=== PATIENT | male | born 1975 | race Caucasian/White ===

== ENCOUNTER 2017-09-12 08:29 | Day surgery (SDC) | payer OTHER ==
[~2017-09-12 08:29] MED LIST: SOD CHLORIDE 0.9% 1,000 ML IV
[2017-09-12] MEDS ORDERED: METOCLOPRAMIDE 10 MG INJ (10:56)
[2017-09-12] MEDS ORDERED: FENTAnyl 50 MCG/ML VIAL (10:56)
[2017-09-12] MEDS ORDERED: PROPOFOL 20 ML (10:56)
[2017-09-12] MEDS ORDERED: MIDAZOLAM 1 MG/ML 2 ML INJ (10:56)
[2017-09-12] MEDS ORDERED: ONDANSETRON 4 MG INJ (10:56)
[2017-09-12] MEDS ORDERED: CEFAZOLIN 1 GM INJ ×2 (10:56→11:08)
[2017-09-12] MEDS ORDERED: morphine 2 MG INJ IV (11:00)
[2017-09-12] MEDS ORDERED: HYDROCODONE/APAP (5/325) TAB PO (11:00)
[2017-09-12] MEDS ORDERED: ONDANSETRON 4 MG INJ IV (11:00)
[2017-09-12] MEDS ORDERED: KETOROLAC 30 MG INJ (11:08)
[2017-09-12] MEDS: LIDOCAINE 1%/EPI 30 ML INJ INJ (11:21)
[2017-09-12] MEDS ORDERED: LIDOCAINE 1%/EPI 30 ML INJ (11:55)
[2017-09-12] MEDS: BACITRACIN 0.9 GM OINT (11:56)
== END 2017-09-12 13:45 | disposition home or self-care (01) ==
LOC: SDS 08:29
DX: C44.41 Basal cell carcinoma of skin of scalp and neck (principal)
CPT/HCPCS: 14020; 88305